=== PATIENT | female | born 1970 | race Caucasian/White ===

== ENCOUNTER 2018-12-14 01:58 | Emergency (ER) | payer MEDICAID ==
[~2018-12-14] VITALS: Ht 167.6 cm; Wt 65.8 kg
[2018-12-14 02:05] VITALS: BP 135/85
--- NOTE | 2018-12-14 02:12 | NUR ---
PT AMBULATED TO BED 12.
--- NOTE | 2018-12-14 02:16 | NUR ---
48/F PRESENTS TO ED, C/O PALPITATIONS X4 DAYS AND REPORTED SOB AND ANXIETY X2 HRS. PT STATED THAT SHE HAS BEEN UNABLE TO SLEEP. STATED THAT PT HAD A TOOTH EXTRACTION 1 WEEK AGO AND WAS TOLD TO SEEK MEDICAL ATTENTION IF SHE WAS FEELING ILL. AOX4, SKIN NORMAL WARM AND DRY, SPO2 98% ON RA, RR 16 EVEN AND UNLABORED. HR 60 EVEN AND REGULAR, NSR ON MONITOR. LUNG SOUNDS CLEAR BL. HX MITRAL VALVE PROLAPSE RX COMPLETED KEFLEX, FINISHING FLAGYL OTC IBUPROFEN
--- NOTE | 2018-12-14 02:53 | NUR ---
PATIENT LEFT WITHOUT BEING SEEN BY DR. SNEED. NO FURTHER CARE PROVIDED FOR PATIENT.
== END 2018-12-14 02:53 | disposition left against medical advice (07) ==
LOC: MED 01:58
DX: F41.9 Anxiety disorder, unspecified (principal); Z53.21 Procedure and treatment not carried out due to patient leaving prior to being seen by health care provider